=== PATIENT | male | born 1990 | race African-American/Black ===

== ENCOUNTER 2018-09-24 19:56 | Emergency (ER) | payer OTHER ==
[~2018-09-24] VITALS: Ht 190.5 cm; Wt 83.9 kg
[2018-09-24] MEDS ORDERED: NORFLEX100 MG PO (21:09)
[2018-09-24 21:25] VITALS: BP 133/90
[2018-09-25] MEDS ORDERED: MEDROLDOSEPACK PO (07:52)
[2018-09-25] MEDS ORDERED: NORCO 5-325 TA1 EACH PO (07:52)
== END 2018-09-24 21:26 | disposition home or self-care (01) ==
LOC: M.ERS 19:56
DX: S29.012A Strain of muscle and tendon of back wall of thorax, initial encounter (principal); X58.XXXA Exposure to other specified factors, initial encounter; Y93.89 Activity, other specified; Y92.89 Other specified places as the place of occurrence of the external cause; Y99.8 Other external cause status

== ENCOUNTER 2018-09-25 07:06 | Emergency (ER) | payer OTHER ==
[~2018-09-25] VITALS: Ht 190.5 cm; Wt 83.9 kg
[~2018-09-25 07:06] MED LIST: NORFLEX100 MG PO
[2018-09-25] MEDS ORDERED: MEDROLDOSEPACK PO (07:52)
[2018-09-25] MEDS ORDERED: NORCO 5-325 TA1 EACH PO (07:52)
[2018-09-25 07:57] VITALS: BP 122/77
== END 2018-09-25 07:58 | disposition home or self-care (01) ==
LOC: M.ERS 07:06
DX: M43.6 Torticollis (principal)